=== PATIENT | male | born 1990 | race Caucasian/White ===

== ENCOUNTER 2016-12-15 14:22 | Emergency (ER) | payer OTHER ==
[~2016-12-15] VITALS: Ht 177.8 cm; Wt 77.3 kg
[~2016-12-15 14:22] MED LIST: DICY10CA55 PO
[2016-12-15 14:35] VITALS: TEMP 36.8; Ht 177.8 cm; Wt 77.3 kg
[2016-12-15] MEDS ORDERED: ONDANSETRON INJ 2 MG/ML 2 ML VIAL IV STA (15:07)
[2016-12-15] MEDS ORDERED: KETOROLAC TROMETHAMINE 30 MG/ML VIAL IV STA (15:07)
[2016-12-15] MEDS ORDERED: MoRPHine SULFATE 4 MG/ML 1 ML CARP\\VIAL IV STA (15:07)
[2016-12-15] MEDS ORDERED: SODIUM CHLORIDE 0.9% 1000ML 1,000 ML IV STA (15:07)
--- NOTE | 2016-12-15 15:33 | EMERGENCY ROOM VISIT NOTE ---
History First contact with patient: 14:58 Chief Complaint: GROIN PAIN Stated Complaint: SEVERE GROIN PAIN/HX OF KIDNEY STONES History of Present Illness The patient is a 26 year old male who presents to the Emergency Room via private vehicle accompanied by male with complaints of "severe groin pain/ history of kidney stones". The patient states that he had to have surgery 2 in the past for renal calculi. He states that for the past hour he has had bilateral testicular/groin pain. He states that earlier when he urinated there was a stinging sensation. He states that the last few days he has been moving heavy items. He states that the pain is worse with movement. He rates the pain as a 6-7/10. He denies any trauma or injury to the area. He denies any recent sexual contact for unprotected sex. Review of Systems A complete 10-point Review of Systems was discussed with the patient, with pertinent positives and negatives listed in the History of Present Illness. All remaining Review of Systems questions can be considered negative unless otherwise specified. Past Medical/Surgical History Medical Problems: (1) YIN (acute kidney injury) (2) No active medical problems Family History Patient reports no known family medical history. Social History Smoking Status: Never Smoker Alcohol Use: occasionally Drug Use: none Marital Status: single Housing Status: lives with family Current/Historical Medications No Active Prescriptions or Reported Meds Physical Exam Vital Signs Date Time Temp Pulse Resp B/P (MAP) Pulse Ox O2 Delivery O2 Flow Rate FiO2 12/15/16 19:06 61 18 137/93 97 Room Air 12/15/16 17:06 68 12/15/16 16:30 61 12 150/72 98 Room Air 12/15/16 15:29 Room Air 12/15/16 14:35 36.8 81 18 139/89 97 Room Air Physical Exam VITAL SIGNS - Vital signs and nursing notes were reviewed. Stable. GENERAL -26-year-old male appearing his stated age who is in no acute distress. Communicates well with provider and answers questions appropriately. SKIN - Without rashes. No petechial rashes. HEAD - NC/AT. EYES - PERRL with EOMI bilaterally. Sclera anicteric. EARS - No deformities of external structures noted on gross examination bilaterally. NOSE - Midline and without cyanosis. No epistaxis or purulent drainage noted. Septum midline without deviation or septal hematoma noted. MOUTH/OROPHARYNX - Without perioral cyanosis. Buccal mucosa pink and moist and without leukoplakia. Tongue midline with equal elevation of palate bilaterally. No tonsillar hypertrophy, erythema, or exudates noted. Fair dentition noted. LUNGS - Chest wall symmetric without accessory muscle use, intercostals retractions, or central cyanosis. Normal vesicular breath sounds CTA B/L. No wheezes, rales, or rhonchi appreciated. CARDIAC - RRR with S1/S2. No murmur, rubs, or gallops appreciated. ABDOMEN - Abdominal contour normal without pulsations or visible masses. BS normoactive all four quadrants. No tenderness, palpable masses, hepatosplenomegaly, or ascites noted. EXTREMITIES - No clubbing or peripheral cyanosis. No pretibial edema present. + 5/5 strength noted in UE/LE bilaterally. NEUROLOGIC - Cranial nerves II through XII grossly intact. Sensory intact to light touch throughout. PSYCH - A&O, and cooperates fully with examiner. Pt is very pleasant and interacts well with examiner. GENITOURINARY: There is no testicular enlargement, tenderness or erythema. Penis is unremarkable. No hernia noted to exam. Medical Decision & Procedures ER Provider Diagnostic Interpretation: CT OF THE ABDOMEN AND PELVIS WITHOUT CONTRAST, STONE PROTOCOL CLINICAL HISTORY: Sudden onset groin/testicular pain. Evaluate for stone. COMPARISON STUDY: CT of the abdomen and pelvis March 07, 2015 and KUB March 18, 2015. TECHNIQUE: Helical axial images of the abdomen and pelvis were obtained without IV or oral contrast according to renal stone protocol. A dose lowering technique was utilized adhering to the principles of ALARA. FINDINGS: Note is made of a 3 mm calculus within lower pole of the right kidney. There are no ureteral calculi and there is no hydronephrosis. Evaluation of the remainder of the abdomen and pelvis is suboptimal on this unenhanced exam. The liver, spleen, adrenal glands and pancreas are normal. The caliber of small and large bowel is normal. The appendix is normal. There is no free fluid. There is no lymphadenopathy. A mixed lucent and sclerotic focus within the right femoral neck and intertrochanteric portion of the right femur is unchanged. This suggests fibrous dysplasia. This is partially imaged on this exam. IMPRESSION: 1. 3 mm right renal calculus. No ureteral calculi or hydronephrosis. 2. No acute process within the abdomen or pelvis on unenhanced exam. Normal appendix. 3. 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 Electronically signed by: Naeem Tinsley M.D. 12/15/2016 3:54 PM Dictated Date/Time: 12/15/2016 3:44 PM SCROTAL ULTRASOUND CLINICAL HISTORY: Bilateral testicular pain. COMPARISON STUDY: None. TECHNIQUE: Grayscale and color and duplex Doppler sonography of the scrotum was performed. FINDINGS: The right testis measures 4.7 x 2.1 x 2.7 cm and the left measures 4.3 x 2.2 x 2.9 cm. There is no testicular mass. Color flow within each testis is symmetric. There is no evidence for epididymitis. IMPRESSION: Unremarkable scrotal ultrasound. No evidence of testicular torsion. No evidence of epididymitis. Electronically signed by: Naeem Tinsley M.D. 12/15/2016 6:39 PM Dictated Date/Time: 12/15/2016 6:37 PM Laboratory Results 12/15/16 15:25 Red Blood Count 5.05, Mean Corpuscular Volume 86.7, Mean Corpuscular Hemoglobin 31.1, Mean Corpuscular Hemoglobin Concent 35.8, Mean Platelet Volume 10.7, Neutrophils (%) (Auto) 69.1, Lymphocytes (%) (Auto) 22.0, Monocytes (%) (Auto) 8.0, Eosinophils (%) (Auto) 0.4, Basophils (%) (Auto) 0.5, Neutrophils # (Auto) 5.42, Lymphocytes # (Auto) 1.73, Monocytes # (Auto) 0.63, Eosinophils # (Auto) 0.03, Basophils # (Auto) 0.04 12/15/16 15:25 Test 12/15/16 15:25 White Blood Count 7.85 K/uL (4.8-10.8) Red Blood Count 5.05 M/uL (4.7-6.1) Hemoglobin 15.7 g/dL (14.0-18.0) Hematocrit 43.8 % (42-52) Mean Corpuscular Volume 86.7 fL (80-100) Mean Corpuscular Hemoglobin 31.1 pg (25-34) Mean Corpuscular Hemoglobin Concent 35.8 g/dl (32-36) Platelet Count 251 K/uL (130-400) Mean Platelet Volume 10.7 fL (7.4-10.4) Neutrophils (%) (Auto) 69.1 % Lymphocytes (%) (Auto) 22.0 % Monocytes (%) (Auto) 8.0 % Eosinophils (%) (Auto) 0.4 % Basophils (%) (Auto) 0.5 % Neutrophils # (Auto) 5.42 K/uL (1.4-6.5) Lymphocytes # (Auto) 1.73 K/uL (1.2-3.4) Monocytes # (Auto) 0.63 K/uL (0.11-0.59) Eosinophils # (Auto) 0.03 K/uL (0-0.5) Basophils # (Auto) 0.04 K/uL (0-0.2) RDW Standard Deviation 41.3 fL (36.4-46.3) RDW Coefficient of Variation 13.1 % (11.5-14.5) Immature Granulocyte % (Auto) 0.0 % Immature Granulocyte # (Auto) 0.00 K/uL (0.00-0.02) Red Blood Cell Morphology Unremarkable Prothrombin Time 10.7 SECONDS (9.0-12.0) Prothromb Time International Ratio 1.0 (0.9-1.1) Activated Partial Thromboplast Time 27.1 SECONDS (21.0-31.0) Partial Thromboplastin Ratio 1.0 Urine Color YELLOW Urine Appearance CLEAR (CLEAR) Urine pH 5.5 (4.5-7.5) Urine Specific [place] 1.011 (1.000-1.030) Urine Protein NEG (NEG) Urine Glucose (UA) NEG (NEG) Urine Ketones NEG (NEG) Urine Occult Blood NEG (NEG) Urine Nitrite NEG (NEG) Urine Bilirubin NEG (NEG) Urine Urobilinogen NEG (NEG) Urine Leukocyte Esterase NEG (NEG) Anion Gap 6.0 mmol/L (3-11) Est Creatinine Clear Calc Drug Dose 101.4 ml/min Estimated GFR () 101.6 Estimated GFR (Non- 87.7 BUN/Creatinine Ratio 9.1 (10-20) Calcium Level 8.9 mg/dl (8.5-10.1) Magnesium Level 2.4 mg/dl (1.8-2.4) Total Bilirubin 0.6 mg/dl (0.2-1) Aspartate Amino Transf (AST/SGOT) 19 U/L (15-37) Alanine Aminotransferase (ALT/SGPT) 30 U/L (12-78) Alkaline Phosphatase 73 U/L (45-117) Total Creatine Kinase 158 U/L (39-308) Creatine Kinase MB 0.7 ng/ml (0.5-3.6) Creatine Kinase MB Ratio 0.4 (0-3.0) Total Protein 8.6 gm/dl (6.4-8.2) Albumin 4.6 gm/dl (3.4-5.0) Globulin 4.0 gm/dl (2.5-4.0) Albumin/Globulin Ratio 1.2 (0.9-2) Medications Administered Medications (Trade) Dose Ordered Sig/Linda Route Start Time Stop Time Status Last Admin Dose Admin Sodium Chloride 1,000 ml @ 999 mls/hr Q1H1M STAT IV 12/15/16 15:07 12/15/16 16:07 DC 12/15/16 15:23 999 MLS/HR Ketorolac Tromethamine (Toradol Inj) 30 mg NOW STAT IV 12/15/16 15:07 12/15/16 15:10 DC 12/15/16 15:23 30 MG Morphine Sulfate (MoRPHine SULFATE INJ) 4 mg NOW STAT IV 12/15/16 15:07 12/15/16 15:10 DC 12/15/16 15:23 4 MG Ondansetron HCl (Zofran Inj) 4 mg NOW STAT IV 12/15/16 15:07 12/15/16 15:10 DC 12/15/16 15:24 4 MG Medical Decision Patient was seen and evaluated as above. He presents to us today with bilateral scrotal pain. He has a history of renal calculi. Benefits versus risk of obtaining CT scan was discussed, and the decision was made to stand. Essentially unremarkable. He was informed upon the sclerotic lesion. He is to follow up. Additionally, I elected to obtain an ultrasound of the scrotum to eliminate other etiologies. These were unremarkable. I question whether or not he had a torsion that has untorsed, or potentially a hernia that has reduced itself. Given the unremarkable workup, I would lean towards either of those 2. Thirdly, he could have potentially passed a kidney stone. His workup here is essentially unremarkable. He is to follow to have his kidney function repeated as it was starting to become elevated slightly, but certainly not of an emergent process. At this time he appears stable for outpatient management. He is to follow-up with his family doctor. He was educated upon management, educated upon worrisome symptoms which to return, had questions answered prior to discharge, and was discharged home in good condition. Final here he was given Toradol, Zofran and morphine for his pain of which was alleviated. It is important to note that there was no testicular tenderness upon my exam prior to the medication. In evaluation and treatment this patient the following differential diagnoses were entertained: Renal calculi, scrotal abnormality, testicular torsion, epididymitis, among others. He was given strict return precautions if the testicular pain would return. Impression Primary Impression: Testicular pain Departure Information Dispostion Home / Self-Care Condition GOOD Prescriptions No Active Prescriptions or Reported Meds Referrals Tima Ley M.D. (PCP) Patient Instructions My [facility] Additional Instructions You have been treated in the Emergency Department your testicular Pain. Laboratory results and imaging studies have ruled out any emergent causes for your testicular pain which would warrant admission or surgery. For pain control, you can use the following kexq-irg-foclyyz medicines (if >12 yo): - Regular strength (325mg/tab) Tylenol (acetaminophen) 2 tabs every 4-6 hours as needed. Do not exceed 12 tablets in a 24 hour period. Avoid taking more than 3 grams (3000 mg) of Tylenol per day. This includes any other sources of acetaminophen you may take on a regular basis. - Regular strength (200 mg/tab) Advil (ibuprofen) 1-2 tabs every 4-6 hours as needed. Do not exceed a dose of 3200 mg per day. Drink plenty of water and stay well hydrated. As with any trip to the Emergency Department, you should follow-up with your Primary Care Provider from today's visit. Please also follow-up with her family doctor regarding the bone abnormality in the right hip. Return to the emergency department if your symptoms persist despite treatment plan outlined above or if the following symptoms occur: increased fevers, chills , worsening nausea/vomiting, blood in your stool or urine.
[2016-12-15 15:45] LABS: URINE APPEARANCE CLEAR (CLEAR); URINE BILIRUBIN NEG (NEG); URINE COLOR YELLOW; URINE NITRITE NEG (NEG); URINE PH 5.5 (4.5-7.5); URINE SPECIFIC GRAVITY 1.011 (1.000-1.030); UROBILINOGEN NEG (NEG); ZZUR CULT IF INDIC CLEAN CATCH NO
[2016-12-15 15:53] LABS: MANUAL MICROSCOPIC REQUIRED? NO; REVIEW REQ? NO
--- NOTE | 2016-12-15 15:55 | DIAGNOSTIC IMAGING REPORT ---
CT OF THE ABDOMEN AND PELVIS WITHOUT CONTRAST, STONE PROTOCOL CLINICAL HISTORY: Sudden onset groin/testicular pain. Evaluate for stone. COMPARISON STUDY: CT of the abdomen and pelvis March 07, 2015 and KUB March 18, 2015. TECHNIQUE: Helical axial images of the abdomen and pelvis were obtained without IV or oral contrast according to renal stone protocol. A dose lowering technique was utilized adhering to the principles of ALARA. FINDINGS: Note is made of a 3 mm calculus within lower pole of the right kidney. There are no ureteral calculi and there is no hydronephrosis. Evaluation of the remainder of the abdomen and pelvis is suboptimal on this unenhanced exam. The liver, spleen, adrenal glands and pancreas are normal. The caliber of small and large bowel is normal. The appendix is normal. There is no free fluid. There is no lymphadenopathy. A mixed lucent and sclerotic focus within the right femoral neck and intertrochanteric portion of the right femur is unchanged. This suggests fibrous dysplasia. This is partially imaged on this exam. IMPRESSION: 1. 3 mm right renal calculus. No ureteral calculi or hydronephrosis. 2. No acute process within the abdomen or pelvis on unenhanced exam. Normal appendix. 3. 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 Electronically signed by: Naeem Tinsley M.D. 12/15/2016 3:54 PM Dictated Date/Time: 12/15/2016 3:44 PM
[2016-12-15 15:59] LABS: PROTHROMBIN TIME (PATIENT) 10.7 SECONDS (9.0-12.0)
[2016-12-15 16:16] LABS: BUN/CREATININE RATIO 9.1 (10-20); CALCIUM 8.9 mg/dl (8.5-10.1); CREATININE 1.16 mg/dl (0.60-1.40); MAGNESIUM 2.4 mg/dl (1.8-2.4); POTASSIUM 3.8 mmol/L (3.5-5.1)
[2016-12-15 16:21] LABS: ALB/GLOB RATIO 1.2 (0.9-2); CKMB/CK RATIO 0.4 (0-3.0)
[2016-12-15 16:30] LABS: HEMATOCRIT 43.8 % (42-52); MEAN CELL VOLUME 86.7 fL (80-100); MEAN CORPUSCULAR HEMOGLOBIN 31.1 pg (25-34); MEAN CORPUSCULAR HGB CONC 35.8 g/dl (32-36); MEAN PLATELET VOLUME 10.7 fL (7.4-10.4); PLATELET COUNT 251 K/uL (130-400); RED BLOOD COUNT 5.05 M/uL (4.7-6.1); WHITE BLOOD COUNT 7.85 K/uL (4.8-10.8)
--- NOTE | 2016-12-15 18:41 | DIAGNOSTIC IMAGING REPORT ---
SCROTAL ULTRASOUND CLINICAL HISTORY: Bilateral testicular pain. COMPARISON STUDY: None. TECHNIQUE: Grayscale and color and duplex Doppler sonography of the scrotum was performed. FINDINGS: The right testis measures 4.7 x 2.1 x 2.7 cm and the left measures 4.3 x 2.2 x 2.9 cm. There is no testicular mass. Color flow within each testis is symmetric. There is no evidence for epididymitis. IMPRESSION: Unremarkable scrotal ultrasound. No evidence of testicular torsion. No evidence of epididymitis. Electronically signed by: Naeem Tinsley M.D. 12/15/2016 6:39 PM Dictated Date/Time: 12/15/2016 6:37 PM
[2016-12-15 19:06] VITALS: BP 137/93; PULSE 61; O2SAT 97
[2016-12-15 19:23] LABS: BASO % 0.5 %; BASO ABS # 0.04 K/uL (0-0.2); COMPLETE YES; EOS % 0.4 %; LYMPH ABS # 1.73 K/uL (1.2-3.4); NEUT % 69.1 %
== END 2016-12-15 19:09 | disposition home or self-care (01) ==
LOC: C.EDB 14:24 → C.EDC 19:09
DX: N50.811 Right testicular pain (principal); N50.812 Left testicular pain; M89.9 Disorder of bone, unspecified; Z87.442 Personal history of urinary calculi

== ENCOUNTER 2017-05-18 23:44 | Emergency (ER) | payer OTHER ==
[~2017-05-18] VITALS: Ht 177.8 cm; Wt 85.4 kg
[2017-05-18 23:47] VITALS: TEMP 36.7; Ht 177.8 cm; Wt 85.4 kg
[2017-05-18] MEDS ORDERED: IBUPROFEN 600 MG TAB PO STA (23:59)
--- NOTE | 2017-05-19 00:06 | EMERGENCY ROOM VISIT NOTE ---
History Report prepared by Amanda: Joao Montes Under the Supervision of: Dr. Boom Leavitt D.O. First contact with patient: 23:51 Chief Complaint: TESTICULAR PAIN Stated Complaint: TESTICULAR TORSIN History of Present Illness The patient is a 26 year old male who presents to the Emergency Room with complaints of waxing/waning right testicular pain that started at 2300. He rates his pain as a 7/10 in severity. The patient states that he was walking home from the grocery store when he developed a dull ache in his right testicle. He reports that the pain worsened throughout the hour. The patient states that he noticed there was swelling and redness to his right testicle. He reports that he tried to take a hot shower, but denies any relief of symptoms. The patient states that his symptoms are not as severe as before. He reports that he came to the ED to be evaluated, but states that his symptoms were relieved before his ultrasound was done. The patient states that they believed he had a torsion or a hernia. He reports that he was not able to follow up with a doctor or urologist. The patient reports a history of kidney stones and lithotripsy. He states he occasionally drinks alcohol but denies any drug or tobacco use. Source of History: patient Onset: 2300 Position: other (right testicle) Symptom Intensity: 7/10 Quality: ache, dull Timing: waxes/wanes Modifying Factors (Relieving): other (hot shower) Note: Associated symptoms: Testicle redness and swelling. Review of Systems See HPI for pertinent positives & negatives. A total of 10 systems reviewed and were otherwise negative. Past Medical & Surgical Medical Problems: (1) YIN (acute kidney injury) (2) No active medical problems Family History Patient reports no known family medical history. Social History Smoking Status: Never Smoker Alcohol Use: occasionally Drug Use: none Marital Status: single Housing Status: lives with family Current/Historical Medications Scheduled Doxycycline (Monohydrate) (Doxycycline Monohydrate), 100 MG PO BID Allergies Coded Allergies: No Known Allergies (Unverified , 11/16/15) Physical Exam Vital Signs Date Time Temp Pulse Resp B/P (MAP) Pulse Ox O2 Delivery O2 Flow Rate FiO2 05/18/17 23:47 36.7 79 16 152/79 96 Room Air Physical Exam GENERAL: Patient is awake, alert, anxious appearing, and uncomfortable. EYES: The conjunctivae are clear. The pupils are round and reactive. EARS, NOSE, MOUTH AND THROAT: The nose is without any evidence of any deformity. Mucous membranes are moist tongue is midline NECK: The neck is nontender and supple. RESPIRATORY: Normal respiratory effort is noted there is no evidence of wheezing rhonchi or rales CARDIOVASCULAR: Regular rate and rhythm noted there no murmurs rubs or gallops normal S1 normal S2 GASTROINTESTINAL: The abdomen is soft. Bowel sounds are present in all quadrants. Abdomen is nontender : Circumcised male genitalia noted. No rashes noted. Testicles were distended bilaterally. No tenderness appreciated. BACK: No midline tenderness or or step-off noted range of motion in flexion extension as well as rotation no signs of muscle spasm noted MUSCULOSKELETAL/EXTREMITIES: There is no evidence of gross deformity full range of motion is noted in the hips and shoulders SKIN: There is no obvious evidence of any rash. There are no petechiae, pallor or cyanosis noted. NEUROLOGIC: Patient is awake alert and oriented x3 strength is symmetric patellar reflexes are 2+ bilaterally Medical Decision & Procedures ER Provider Diagnostic Interpretation: Ultrasound of the scrotum was obtained in the emergency department. The report is reviewed. Preliminary Findings Only See Final Report For Complete Findings US SCROTAL: No testicular mass or torsion. Relatively hyperemic right epididymis may reflect epididymitis, particularly given symptoms. Radiologist: Marty Hughes M.D. Study ready at 00:45 and initial results transmitted at 01:09 Laboratory Results Test 05/18/17 23:59 Urine Color YELLOW Urine Appearance CLEAR (CLEAR) Urine pH 5.5 (4.5-7.5) Urine Specific [place] 1.023 (1.000-1.030) Urine Protein NEG (NEG) Urine Glucose (UA) NEG (NEG) Urine Ketones NEG (NEG) Urine Occult Blood NEG (NEG) Urine Nitrite NEG (NEG) Urine Bilirubin NEG (NEG) Urine Urobilinogen NEG (NEG) Urine Leukocyte Esterase NEG (NEG) Laboratory results per my review. Medications Administered Medications (Trade) Dose Ordered Sig/Linda Route Start Time Stop Time Status Last Admin Dose Admin Ibuprofen (Motrin Tab) 600 mg NOW STAT PO 05/18/17 23:59 05/19/17 00:01 DC 05/19/17 00:06 600 MG ED Course 2355: The patient was evaluated in room B12B. A complete history and physical examination were performed. 2359: Ordered Ibuprofen 600 mg PO. 0115: Ordered Rocephin 250 mg IM. 0120: Upon reevaluation, the patient is resting comfortably. I discussed the results and treatment plan with the patient. He verbalized agreement of the treatment plan. The patient was discharged home. Medical Decision Prior records/ancillary studies reviewed. Triage Nursing notes reviewed. The patient's history was concerning for testicular swelling. Differential diagnosis: Etiologies such as torsion, mass, infection, hernia, hydrocele, epididymitis, trauma, intra-abdominal process, as well as others were entertained. The patient is a 26-year-old male who presented to the emergency department for an evaluation of right testicular pain. The patient was seen in our facility with similar complaints recently. He states that he was scheduled to follow-up with a urologist however we called for the appointment he was told that he did not need a follow-up appointment. He was told previously that he might have intermittent testicular torsion and that is why he presented to the emergency department today. The patient's physical exam as well as his ultrasound did not appear to be consistent with testicular torsion. His ultrasound appeared to be more consistent with epididymitis. The patient was treated with antibiotics in the emergency department. I discussed his case with the emergency department human services case manager. They will try to get the patient an appointment with the urologist as soon as possible. He was encouraged to continue using Motrin and Tylenol for pain and follow-up with the urologist as scheduled. Otherwise he was encouraged to return the emergency department immediately if symptoms change worsen or the need arises. Medication Reconcilliation Current Medication List: was personally reviewed by me Blood Pressure Screening Patient's blood pressure: Elevated blood pressure Blood pressure disposition: Elevated BP felt to be situational Impression Primary Impression: Right epididymitis Additional Impression: Right testicular pain Scribe Attestation The scribe's documentation has been prepared under my direction and personally reviewed by me in its entirety. I confirm that the note above accurately reflects all work, treatment, procedures, and medical decision making performed by me. Departure Information Dispostion Home / Self-Care Prescriptions Doxycycline (Monohydrate) (DOXYCYCLINE MONOHYDRATE) 100 Mg Tab 100 MG PO BID, #28 TABS Prov: Boom Leavitt, DO 05/19/17 Referrals Tima Ley M.D. (PCP) Forms HOME CARE DOCUMENTATION FORM, IMPORTANT VISIT INFORMATION, WORK / SCHOOL INSTRUCTIONS Patient Instructions Epididymitis Orchitis, [facility] Additional Instructions Continue all medications as prescribed. Follow-up with the urologist as scheduled. Continue using Motrin and Tylenol as directed for pain. Return to the emergency department immediately if symptoms change worsen or the need arises. Problem Qualifiers
[2017-05-19] MEDS ORDERED: CEFTRIAXONE SOD 350MG/ML 1 GM VIAL IM STA (01:15)
[2017-05-19] MEDS ORDERED: DOXY100T17 PO (01:22)
[2017-05-19 02:00] VITALS: BP 138/76; PULSE 74; O2SAT 98
--- NOTE | 2017-05-19 06:13 | DIAGNOSTIC IMAGING REPORT ---
(TESTICULAR) SCROTUM-CONT HISTORY: Pain. Edema. pain and swelling COMPARISON: None. FINDINGS: Right testis: Maximum dimension 4 cm. Normal vascular flow. Mild hyperemia right epididymis Left testis: 4.3 cm maximum dimension. Normal vascular flow. IMPRESSION: 1. Normal testes bilaterally. 2. Mild hyperemia right epididymis suggesting mild right epididymitis. The above report was generated using voice recognition software. It may contain grammatical, syntax or spelling errors. Electronically signed by: Dakota Blum M.D. 05/19/2017 6:12 AM Dictated Date/Time: 05/19/2017 6:11 AM
== END 2017-05-19 02:01 | disposition home or self-care (01) ==
LOC: C.EDB 23:45
DX: N45.1 Epididymitis (principal); Z87.442 Personal history of urinary calculi